=== PATIENT | male | born 1985 | race African-American/Black ===

== ENCOUNTER 2020-01-22 21:58 | Emergency (ER) | payer OTHER ==
[~2020-01-22] VITALS: Ht 185.4 cm; Wt 113.6 kg
[2020-01-22 22:28] VITALS: BP 121/86; TEMP 98.1
[2020-01-22] MEDS ORDERED: PREDNISONE20 MG PO (22:58)
[2020-01-22 23:17] VITALS: PULSE 75
== END 2020-01-22 23:17 | disposition home or self-care (01) ==
LOC: COL.ER 21:58
DX: J45.901 Unspecified asthma with (acute) exacerbation (principal); J30.9 Allergic rhinitis, unspecified